=== PATIENT | male | born 1980 | race Caucasian/White ===

== ENCOUNTER 2025-02-05 09:46 | Day surgery (SDC) | payer BC ==
[2025-02-05] VITALS (14 sets, daily range): BP systolic 109–132; BP diastolic 66–89
[~2025-02-05] VITALS: Ht 178 cm; Wt 97.2 kg
[2025-02-05] MEDS ORDERED: HYDROmorphone HCl/Pf 1MG SYR IV PRN (10:55)
[2025-02-05] MEDS ORDERED: FentaNYL Citrate 50 MCG/ML 2 ML Injection IV PRN ×2 (10:55)
[2025-02-05] MEDS ORDERED: Albuterol 2.5 MG/3 ML VIAL INH PRN (10:55)
[2025-02-05] MEDS ORDERED: FentaNYL Citrate 50 MCG/ML 2 ML Injection ONE ×3 (10:57→13:50)
--- NOTE | 2025-02-05 10:58 | NUR ---
Ambulatory in Day Surgery History, Chart, Medications and Allergies reviewed before start of procedure.Patient confirms NPO status and agrees with scheduled surgery. Surgical site prepped with 2% Chlorhexidine cloth wipe. Patient States Post-Procedure ride home has been arranged WITH SPOUSE.
[2025-02-05] MEDS ORDERED: Metoclopramide HCl 5MG / ML 2ML Vial IV PRN (11:00)
[2025-02-05] MEDS ORDERED: Ondansetron HCl 2 MG / ML 2ML Vial IV PRN (11:00)
[2025-02-05] MEDS ORDERED: Midazolam HCl 1MG / ML 2ML Vial IV PRN (11:05)
[2025-02-05] MEDS ORDERED: Bupivacaine 0.5% W/EPI 1:200000 SDV 30 ML Vial ONE (11:11)
[2025-02-05] MEDS ORDERED: Midazolam HCl 1MG / ML 2ML Vial ONE (11:51)
[2025-02-05] MEDS ORDERED: Ondansetron HCl 2 MG / ML 2ML Vial ONE ×2 (12:03→14:04)
[2025-02-05] MEDS ORDERED: Rocuronium Bromide 10 MG/ML 5ML Injection IV ONE (12:03)
[2025-02-05] MEDS ORDERED: Dexamethasone Sod Phos 10 MG/ML 1ML VIAL ONE (12:03)
[2025-02-05] MEDS ORDERED: Sugammadex Sodium 200 MG/2ML SDV (100 MG/ML) ONE (12:06)
[2025-02-05] MEDS ORDERED: Metoclopramide HCl 5MG / ML 2ML Vial ONE (13:51)
[2025-02-05] MEDS ORDERED: OxyCODONE 5 mg/Acetamin 325 mg TABLET PO PRN (14:10)
[2025-02-05] MEDS ORDERED: Prochlorperazine Edisylate 10 mg Vial ONE (14:34)
[2025-02-05] MEDS ORDERED: Prochlorperazine Edisylate 10 mg Vial IV PRN (14:35)
--- NOTE | 2025-02-05 16:40 | NUR ---
Discharge instructions reviewed with patient. Patient verbalizes understanding. Copy given to patient to take home. Opsites viewed with patient & spouse, gauze covered with tegaderm x4, CDI. Ice pack provided. Pt declined po intake, sts nausea has improved but not resolved; sts pain is manageable. Pt requesting DC home. Discharged via wheelchair to private car for ride home.
== END 2025-02-05 15:21 | disposition home or self-care (01) ==
LOC: ORSCMMR 09:46 → ORD 02-11 08:00
PROVIDERS: Surgery
PROC: BF532Z0 Other Imaging of Gallbladder and Bile Ducts using Fluorescing Agent, Intraoperative (ICD-10-PCS; principal; 2025-02-05 12:00)
PROC: 8E0W4CZ Robotic Assisted Procedure of Trunk Region, Percutaneous Endoscopic Approach (ICD-10-PCS; principal; 2025-02-05 12:00)
PROC: 0FT44ZZ Resection of Gallbladder, Percutaneous Endoscopic Approach (ICD-10-PCS; principal; 2025-02-05 12:00)
DX: K80.10 Calculus of gallbladder with chronic cholecystitis without obstruction (principal); E66.9 Obesity, unspecified; Z68.30 Body mass index [BMI] 30.0-30.9, adult
CPT/HCPCS: 88304; A9270; J0780; J1100; J1171; J2250; J2405; J2704; J2765; J3010; J7120